=== PATIENT | male | born 1945 | race Caucasian/White ===

== ENCOUNTER → 2017-03-14 | Outpatient (CLI) | payer OTHER, BC ==
[~2017-03-14] MED LIST: CHILDREN'S ASPI81 M1 PO; DOXYCYCLINE HYC50 MG PO; FISH OIL 1,001000 M2 PO; IBUPROFEN 600600 M1 PO; LIPITOR40 MG PO; NO; NORCO 5-325 TA1 EACH PO; PACERONE 200 M200 M1 PO; PHENERGAN 25 MG25 M1 PO; TOPROL XL25 MG PO
== END ==
LOC: RAD 12:00
DX: R06.02 Shortness of breath (principal); Z95.1 Presence of aortocoronary bypass graft

== ENCOUNTER → 2017-07-18 | Outpatient (CLI) | payer OTHER, BC ==
[2017-07-18 08:26] LABS: BASOPHILS 0.6 % (0.0-2.0); EOSINOPHILS 2.4 % (0.0-3.0); HEMATOCRIT 42.2 % (42.0-52.0); HEMOGLOBIN 14.1 gm/dL (14.0-18.0); LYMPHOCYTES 35.9 % (24.0-44.0); MCHC 33.3 g/dL (28.0-37.0); MCV 96.1 fL (80.0-100.0); MONOCYTES 7.3 % (1.0-8.0); PLATELET COUNT 141 thou/uL (150-400); POLYS 53.8 % (36.0-66.0); RBC 4.39 mil/uL (4.50-6.00); RDW 14.7 % (10.5-14.5); WBC 7.5 thou/uL (4.0-11.0)
[2017-07-18 08:52] LABS: ALBUMIN 3.9 g/dL (3.4-5.0); CALCIUM 9.3 mg/dL (8.5-10.1); CREATININE 1.2 mg/dL (0.7-1.3); POTASSIUM 4.5 mmol/L (3.5-5.1); TOTAL BILIRUBIN 0.5 mg/dL (<0.1-1.0); TOTAL PROTEIN 7.2 g/dL (6.4-8.2)
== END ==
LOC: CAT 06:08
PROVIDERS: Internal Medicine Cardiovascular Disease
DX: I25.10 Atherosclerotic heart disease of native coronary artery without angina pectoris (principal); M47.894 Other spondylosis, thoracic region

== ENCOUNTER 2017-07-27 06:36 | Observation (INO) | payer OTHER, BC ==
[~2017-07-27] VITALS: Ht 182.9 cm; Wt 86.2 kg
--- NOTE | ~2017-07-27 | P ---
[facility] [place] [address] [place] [address] PROCEDURE REPORT Name: LEADEIDRE Aroldo Room #: 209-P [facility] [place]#: [id number] Admission: 07/27/17 Attend Phys: Dean Anne MD Discharge: 07/28/17 Date of : 43 Report #: [id number] THIS REPORT FOR: //name// CC: Froy Crawford PREOPERATIVE DIAGNOSES: 1. Atrial fibrillation. 2. Typical atrial flutter. PROCEDURES PERFORMED: 1. AFib ablation, CPT code 15980. 2. 3D mapping, CPT code 95399. 3. Intracardiac echo, CPT code 88915. 4. Focal ablation, CPT code 30724. HISTORY: The patient is a 71-year-old with a history of atrial fibrillation and typical atrial flutter here for an ablation. ANESTHESIA: The patient underwent MAC anesthesia with no anesthesia related complications. DESCRIPTION OF PROCEDURE: The patient underwent informed consent. We discussed the details of the procedure including the risks, which include but not limited to bleeding, infection, vascular damage, stroke and VT. He understood these risks and is willing to proceed. The patient was brought to the EP laboratory in a fasting and unsedated state, prepped and draped in a sterile fashion. I obtained access to the right femoral vein x 3, placing an 8-Nepali, 9-Nepali and 7-Nepali short sheath using the modified Seldinger technique. Next, under fluoroscopy, I placed a decapolar catheter easily in the coronary sinus and an ice catheter into the right atrium. At baseline, the patient was in sinus rhythm with a sinus cycle length of 1380 milliseconds, VT interval 165 milliseconds, QRS duration 100 milliseconds, QT interval 535 milliseconds. Next, using intracardiac ultrasound, I verified that there were 2 left and 2 right pulmonary veins. The patient was systemically heparinized and a transseptal was performed using a Vaiden needle via a SL1 sheath. A transseptal was straightforward. I then exchanged the SL1 sheath for the cryo sheath, placed this in the left atrium and started isolating the veins. The left inferior pulmonary vein isolated in approximately 35 seconds and I performed a 4-minute freeze in this vein. I then turned my attention to the left superior pulmonary vein and performed a total of 3 freezes, which resulted in isolation of the vein. The right superior pulmonary vein isolated, underwent a 120-second freeze and then a second freeze of 180 seconds duration. The vein isolated within 23 seconds of the second freeze. The right inferior pulmonary vein isolated quickly during the first freeze and I therefore performed a single [facility] [address] [place] [address] PROCEDURE REPORT Name: DEIDRE TATE Room #: 209-P [facility] [place]#: [id number] Admission: 07/27/17 Attend Phys: Dean Anne MD Discharge: 07/28/17 Date of : 43 Report #: [id number] 4-minute freeze. I re-interrogated the veins and they all appeared to have been isolated. As such, we pulled our catheters and sheaths to the right atrium and prepped for the atrial flutter ablation. Atrial flutter ablation: I placed a Ramp sheath and an 8 mm ablation catheter into the right atrium and placed a live wire catheter into the right atrium as well. I performed ablation at 6 o'clock along the tricuspid annulus at 70 starkey, 60 degrees and performed a continuous drag lesion which resulted in bidirectional block with a transisthmus conduction time of 140 milliseconds. Post-ablation, the patient was in sinus rhythm. There were no complications. Catheters and sheaths were pulled after protamine was administered. Hemostasis was obtained and the patient awoke neurologically and hemodynamically intact. CONCLUSIONS: 1. Successful AFib ablation with isolation of the 4 pulmonary veins. 2. Successful atrial flutter ablation with evidence of bidirectional block. By: [id number] Dean Anne MD /nt
--- NOTE | ~2017-07-27 | D ---
[facility] [place] [address] [place] [address] DISCHARGE SUMMARY Name: LEADEIDRE Aroldo Room #: 209-P [facility] [place]#: [id number] Admission: 07/27/17 Attend Phys: Dean Anne MD Discharge: 07/28/17 Date of : 43 Report #: [id number] THIS REPORT FOR: //name// CC: Froy Moreno [facility] DATE OF SERVICE: 07/28/2017 DISCHARGE DIAGNOSES: 1. Paroxysmal atrial fibrillation. 2. Typical atrial flutter. 3. Coronary artery disease. 4. Coronary artery bypass surgery. PROCEDURES PERFORMED: 1. AFib ablation. 2. Atrial flutter ablation. HISTORY OF PRESENT ILLNESS: The patient is a 71-year-old with history of coronary artery disease, paroxysmal atrial fibrillation and atrial flutter, who was here for an ablation. He underwent successful isolation of the pulmonary veins and successful ablation of his typical atrial flutter with evidence of bidirectional block. HOSPITAL COURSE: The patient was monitored overnight and remained in sinus rhythm. He had no issues overnight. The following day, he denied any chest pain or shortness of breath. PHYSICAL EXAMINATION: HEART: Regular rate and rhythm. LUNGS: Clear to auscultation bilaterally. GENITOURINARY: The right groin showed no bruising or hematoma. Telemetry showed normal sinus rhythm and his vitals were stable. As such, he was deemed stable for discharge home. He will continue on his standard cardiac medications, including metoprolol, Multaq and Pradaxa therapy. I will see him back in 3 months. <ELECTRONICALLY SIGNED> By: Dean Anne MD 08/04/17 1111 0837 1145 Dean Anne MD /nt
[2017-07-27] MEDS ORDERED: PRADAXA150 MG PO (06:53)
[2017-07-27] MEDS ORDERED: MULTAQ400 MG PO (06:55)
[2017-07-27 07:11] LABS: ABSOLUTE NEUTROPHILS 3.4 thou/uL (1.4-8.2); BASOPHILS 0.7 % (0.0-2.0); EOSINOPHILS 3.8 % (0.0-3.0); HEMATOCRIT 40.3 % (42.0-52.0); HEMOGLOBIN 13.7 gm/dL (14.0-18.0); LYMPHOCYTES 37.1 % (24.0-44.0); MCH 32.4 pg (26.0-34.0); MCV 95.3 fL (80.0-100.0); MONOCYTES 7.9 % (1.0-8.0); PLATELET COUNT 136 thou/uL (150-400); POLYS 50.5 % (36.0-66.0); RBC 4.23 mil/uL (4.50-6.00); RDW 14.6 % (10.5-14.5); WBC 6.8 thou/uL (4.0-11.0)
[2017-07-27 07:15] VITALS: BP 144/63
[2017-07-27 07:30] LABS: INR 1.1; PROTIME 10.9 Seconds (9.3-11.4)
[2017-07-27 07:33] LABS: CALCIUM 9.2 mg/dL (8.5-10.1); CREATININE 1.3 mg/dL (0.7-1.3)
[2017-07-27 13:00] VITALS: BP 148/73
[2017-07-27 16:00] VITALS: BP 123/61
[2017-07-27 19:33] VITALS: BP 114/56
[2017-07-27 23:57] VITALS: BP 119/60
[2017-07-28 04:50] VITALS: BP 119/51
[2017-07-28 07:31] VITALS: BP 120/53
[2017-07-28 09:26] VITALS: BP 120/53
== END 2017-07-28 09:45 | disposition home or self-care (01) ==
LOC: CATH 06:36 → TBACV 06:50 → CATH 10:23 → 2N 13:05 → ENTRNSPT 07-28 09:37 → EDTRNSPTSTS 07-28 09:39 → 2N 07-28 09:45
PROVIDERS: Internal Medicine Cardiovascular Disease
DX: I48.0 Paroxysmal atrial fibrillation (principal); I48.3 Typical atrial flutter; I25.10 Atherosclerotic heart disease of native coronary artery without angina pectoris; I25.2 Old myocardial infarction; E78.5 Hyperlipidemia, unspecified; I99.9 Unspecified disorder of circulatory system; Z98.890 Other specified postprocedural states; Z95.1 Presence of aortocoronary bypass graft
CPT/HCPCS: 62110; 62900; 70005

== ENCOUNTER → 2017-08-15 | Outpatient (CLI) | payer OTHER, BC ==
[~2017-08-15] MED LIST changes: +MULTAQ400 MG PO; +PRADAXA150 MG PO
== END ==
LOC: NUC 06:56
DX: I25.10 Atherosclerotic heart disease of native coronary artery without angina pectoris (principal); I48.91 Unspecified atrial fibrillation; E78.5 Hyperlipidemia, unspecified; Z82.49 Family history of ischemic heart disease and other diseases of the circulatory system; Z88.8 Allergy status to other drugs, medicaments and biological substances

== ENCOUNTER → 2018-06-28 | Outpatient (CLI) | payer OTHER, BC ==
--- NOTE | 2018-06-29 14:06 | PATH ---
[facility] [place] [address] [place] [address] PATHOLOGY RPT PROCEDURE Name: BRADY GONGORA Room #: REG [facility] Velasco.#: [id number] ������������������ Admission: 06/28/18 ������������������ Date of : 43 Discharge: Report #: [id number] Path Case #: [id number] [facility] Accession Number: [id number] . 01 Material submitted: . DUODENAL BX R/O SPRUE HX: ANEMIA . 01 Clinical history: . Pre-OP DX: Anemia Post-OP DX: Anemia . 02 Diagnosis: Small bowel mucosa, duodenum rule out sprue, endoscopic biopsy: - Moderate acute duodenitis associated with a focal fundic-type metaplastic change, compatible with moderate acute peptic duodenitis. (See comment). . (IUV:mml; 06/29/2018) QLM/06/29/2018 . 02 Comment: Examination shows a markedly cellular lamina propria. The surface epithelium shows focal fundic-type metaplastic change. Acute and chronic inflammatory cells are present within the surface epithelium / villi. Subtle villous blunting is identified as well. Overall findings may be secondary to peptic duodenitis. A significant increase in intraepithelial lymphocytes is not identified; therefore, celiac sprue is not favored in the differential diagnosis. Please correlate with tissue transglutaminase levels, if clinically indicated. . (IUV:mml; 06/29/2018) . 02 Electronically signed: . Tracey Chandler MD, Pathologist NPI- [id number] . 01 Gross description: . Received in formalin labeled "Brady Gongora, duodenal BX, rule out sprue," are 2 segments of littlejohn soft tissue measuring 0.8 x 0.3 x 0.2 cm in aggregate dimensions and measuring 0.4 cm each in maximum dimension. The specimen is submitted entirely in cassette A1. (TSD; 06/28/2018) TOB/TOB . 02 Pathologist provided ICD-10: K29.80 . 02 [place] [address] PATHOLOGY RPT PROCEDURE Name: BRADY GONGORA Room #: REG [facility].#: [id number] ������������������ Admission: 06/28/18 ������������������ Date of : 43 Discharge: Report #: [id number] Path Case #: [id number] [facility] . [id number] Specimen Comment: A courtesy copy of this report has been sent to Specimen Comment: [phone], . Specimen Comment: Report sent to / DR SAHA Performed at: [address] [facility], [place], [place] [id number] MD Adan Peters MD Phone: [phone] Performed at: [address] [facility] [id number] MD Tracey Chandler MD Phone: [phone]
--- NOTE | 2018-06-30 08:29 | P ---
[facility] [place] [address] [place] [address] PROCEDURE REPORT Name: LEADEIDRE Room #: REG [facility]#: [id number] Admission: 06/28/18 ������������������ Attend Phys: Carroll Campbell Discharge: ������������������ Date of : 43 Report #: [id number] THIS REPORT FOR: //name// CC: Carroll Crawford DATE OF SERVICE: 06/28/2018 PROCEDURE PERFORMED: Upper endoscopy with biopsies. HISTORY OF PRESENT ILLNESS: The patient is a 72-year-old male with a history of anemia. He denies any obvious bright red blood per rectum or melena. Reportedly, he had Hemoccult testing recently that was negative. He was placed on oral iron therapy as well as Pepcid recently. He does take Pradaxa and aspirin on a regular basis as well, although this has been held for the last week. He had a colonoscopy by myself several years ago in which benign polyps were removed. DESCRIPTION OF PROCEDURE: The risks and benefits of the procedure were explained to the patient, these risks including but not limited to bleeding, perforation, the risk of sedation. He understood these risks and gave informed consent. Sedation was given using propofol per anesthesia. Next, using a standard Olympus upper endoscope, the scope was placed in the patient's mouth and advanced under direct vision through the esophagus, stomach and into the second portion of the duodenum. The larynx was normal in appearance. The esophagus was normal throughout. The GE junction was normal. Overall, the gastric mucosa was normal. The pylorus was normal and patent. The duodenal bulb, first and second portion were all normal. Due to the history of anemia, I did obtain random biopsies of the duodenum to rule out the possibility of celiac sprue. The scope was then withdrawn and the procedure terminated. The patient tolerated the procedure well. IMPRESSION: Normal upper endoscopy. RECOMMENDATIONS: 1. Await biopsy results. 2. Continue Pepcid. 3. Continue to monitor hemoglobin with oral iron replacement. Thank you for allowing me to participate in his care. ��������������������������������������������� <ELECTRONICALLY SIGNED> ���������������������������������������� By: Carroll Peralta MD ��������������������������������������������� 06/30/18 0829 1135 0026 Carroll Peralta MD /nt
== END ==
LOC: GI 09:26
DX: K29.80 Duodenitis without bleeding (principal); D64.9 Anemia, unspecified
CPT/HCPCS: 62110; 62900

== ENCOUNTER → 2018-09-18 | Outpatient (CLI) | payer OTHER, BC | LOC: RAD 15:44 | DX: M19.071 Primary osteoarthritis, right ankle and foot (principal); L03.031 Cellulitis of right toe ==

== ENCOUNTER 2018-11-26 15:12 | Emergency (ER) | payer OTHER, BC ==
[~2018-11-26] VITALS: Ht 180.3 cm; Wt 79.4 kg
[2018-11-26] MEDS ORDERED: IRON325 PO (15:54)
[2018-11-26] MEDS ORDERED: TUMS PO (15:54)
[2018-11-26] MEDS ORDERED: ASPIR 8181 MG PO (15:54)
[2018-11-26] MEDS ORDERED: PEPCID20 MG PO (15:54)
[2018-11-26 17:53] VITALS: BP 127/51
== END 2018-11-26 18:47 | disposition home or self-care (01) ==
LOC: ER 15:12
DX: S83.92XA Sprain of unspecified site of left knee, initial encounter (principal); E78.5 Hyperlipidemia, unspecified; G62.9 Polyneuropathy, unspecified; Z87.442 Personal history of urinary calculi; Z98.890 Other specified postprocedural states; Z95.1 Presence of aortocoronary bypass graft; W11.XXXA Fall on and from ladder, initial encounter; Y92.89 Other specified places as the place of occurrence of the external cause; Y93.89 Activity, other specified; Y99.8 Other external cause status

== ENCOUNTER → 2019-03-12 | Outpatient (CLI) | payer OTHER, BC ==
[~2019-03-12] MED LIST changes: +ASPIR 8181 MG PO; +IRON325 PO; +PEPCID20 MG PO; +TUMS PO
--- NOTE | 2019-03-12 10:11 | 2DMMODE ---
[facility] [place] [place] [address] 2 D/M-MODE ECHOCARDIOGRAM Name: LEADEIDRE Aroldo Room #: REG [facility]#: [id number] Admission: 03/12/19 Attend Phys: Froy Hubbard MD Discharge: Date of : 43 Report #: [id number] THIS REPORT FOR: //name// APPROVED REPORT Study performed: 03/12/2019 09:06:35 EXAM: Comprehensive 2D, Doppler, and color-flow Echocardiogram Patient Location: Echo lab Status: routine BSA: 1.97 HR: 63 bpm BP: 142/68 mmHg Rhythm: NSR Other Information Study Quality: Good Indications Atrial Fibrillation CAD 2D Dimensions RVDd: 35.90 mm IVSd: 9.68 (7-11mm) LVOT Diam: 24.03 (18-24mm) LVDd: 51.01 mm PWd: 8.79 (7-11mm) Ascending Ao: 37.75 (22-36mm) LVDs: 32.92 (25-40mm) Aortic Root: 37.05 mm IVC: 15.00 mm Volumes Left Atrial Volume (Systole) Single Plane 4CH: 65.40 mL Single Plane 2CH: 76.38 mL LA ESV Index: 39.00 mL/m2 Aortic Valve AoV Peak Antonio.: 1.11 m/s AO Peak Gr.: 4.96 mmHg LVOT Max P.77 mmHg LVOT Max V: 1.09 m/s LESTER Vmax: 4.45 cm2 AI Vmax: 3.97 m/s AI [place]: 2.51 m/s2 AI PHT: 467.69 ms [facility] [address] [place] [address] 2 D/M-MODE ECHOCARDIOGRAM Name: DEIDRE TATE Room #: REG [facility]#: [id number] Admission: 03/12/19 Attend Phys: Froy Hubbard MD Discharge: Date of : 43 Report #: [id number] Mitral Valve E/A Ratio: 2.1 MV Decel. Time: 269.88 ms MV E Max Antonio.: 0.76 m/s MV A Antonio.: 0.36 m/s MV PHT: 78.26 ms IVRT: 93.43 ms Pulmonary Valve PV Peak Antonio.: 0.91 m/s PV Peak Gr.: 3.32 mmHg Pulmonary Vein P Vein S: 0.77 m/s P Vein A: 0.26 m/s P Vein D: 0.41 m/s P Vein A Dur.: 161.5 msec P Vein S/D Ratio: 1.88 Tricuspid Valve TR Peak Antonio.: 2.71 m/s RAP Estimate: 5.00 mmHg TR Peak Gr.: 29.35 mmHg Left Ventricle The left ventricle is normal size. There is normal left ventricular wall thickness. The left ventricular systolic function is normal. The left ventricular ejection fraction is within the normal range. LVEF is 60-65%. Moderate diastolic dysfunction is present (pseudonormal filling). Right Ventricle The right ventricle is normal size. The right ventricular systolic function is normal. Atria Left atrium is mildly dilated. Right atrium is at the upper limits of normal. Aortic Valve The aortic valve is normal in structure. Mild to moderate aortic regurgitation. There is no aortic valvular stenosis. Mitral Valve The mitral valve is normal in structure. Mild mitral regurgitation. No evidence of mitral valve stenosis. Tricuspid Valve The tricuspid valve is normal in structure. Trace tricuspid regurgitation. PAP is estimated at 34 mmHg. [facility] [address] [place] [address] 2 D/M-MODE ECHOCARDIOGRAM Name: DEIDRE TATE Room #: REG [facility]#: [id number] Admission: 03/12/19 Attend Phys: Froy Hubbard MD Discharge: Date of : 43 Report #: [id number] Pulmonic Valve The pulmonary valve is normal in structure. Mild pulmonic regurgitation. Great Vessels The aortic root is normal in size. IVC is normal in size and collapses >50% with inspiration. Pericardium There is no pericardial effusion. <Conclusion> The left ventricle is normal size. There is normal left ventricular wall thickness. The left ventricular systolic function is normal. Moderate diastolic dysfunction is present (pseudonormal filling). The right ventricle is normal size. Left atrium is mildly dilated. Mild to moderate aortic regurgitation. Mild mitral regurgitation. Trace tricuspid regurgitation. PAP is estimated at 34 mmHg. <ELECTRONICALLY SIGNED> By: Froy Hubbard MD 03/12/19 1011 1011 1011 Froy Hubbard MD /INF
== END ==
LOC: CV 08:42
DX: I08.8 Other rheumatic multiple valve diseases (principal); I25.812 Atherosclerosis of bypass graft of coronary artery of transplanted heart without angina pectoris; I25.2 Old myocardial infarction; E78.5 Hyperlipidemia, unspecified; I48.91 Unspecified atrial fibrillation

== ENCOUNTER → 2019-09-11 | Outpatient (CLI) | payer OTHER, BC | LOC: SJCVC 10:09 | PROVIDERS: ATTEND Internal Medicine Cardiovascular Disease | DX: R94.31 Abnormal electrocardiogram [ECG] [EKG] (principal); I25.810 Atherosclerosis of coronary artery bypass graft(s) without angina pectoris; I48.0 Paroxysmal atrial fibrillation; I10 Essential (primary) hypertension; E78.5 Hyperlipidemia, unspecified; I25.2 Old myocardial infarction; Z79.82 Long term (current) use of aspirin; Z79.899 Other long term (current) drug therapy; Z82.49 Family history of ischemic heart disease and other diseases of the circulatory system; Z95.1 Presence of aortocoronary bypass graft ==

== ENCOUNTER → 2020-02-26 | Outpatient (CLI) | payer OTHER, BC | LOC: SJCVCIMAG 08:07 | PROVIDERS: ATTEND Internal Medicine Cardiovascular Disease | DX: I25.810 Atherosclerosis of coronary artery bypass graft(s) without angina pectoris (principal); I48.0 Paroxysmal atrial fibrillation; I49.3 Ventricular premature depolarization; I10 Essential (primary) hypertension; E78.5 Hyperlipidemia, unspecified; Z79.82 Long term (current) use of aspirin; Z79.899 Other long term (current) drug therapy ==

== ENCOUNTER → 2020-05-26 | Outpatient (CLI) | payer OTHER, BC | LOC: SJCVC 10:31 | PROVIDERS: ATTEND Internal Medicine Cardiovascular Disease | DX: I48.0 Paroxysmal atrial fibrillation (principal); R94.31 Abnormal electrocardiogram [ECG] [EKG]; I10 Essential (primary) hypertension; E78.5 Hyperlipidemia, unspecified; I25.2 Old myocardial infarction; Z95.1 Presence of aortocoronary bypass graft; Z98.890 Other specified postprocedural states; Z79.82 Long term (current) use of aspirin; Z79.899 Other long term (current) drug therapy; Z82.49 Family history of ischemic heart disease and other diseases of the circulatory system ==

== ENCOUNTER → 2020-12-24 | Outpatient (CLI) | payer OTHER, BC | LOC: SJCVCIMAG 07:35 | PROVIDERS: ATTEND Internal Medicine Cardiovascular Disease | DX: R94.31 Abnormal electrocardiogram [ECG] [EKG] (principal); I08.8 Other rheumatic multiple valve diseases; R00.1 Bradycardia, unspecified; I25.810 Atherosclerosis of coronary artery bypass graft(s) without angina pectoris; I48.0 Paroxysmal atrial fibrillation; E78.5 Hyperlipidemia, unspecified; I10 Essential (primary) hypertension; Z79.82 Long term (current) use of aspirin; Z79.899 Other long term (current) drug therapy ==